=== PATIENT | male | born 1945 | race Caucasian/White ===

== ENCOUNTER 2025-08-14 11:33 | Emergency (ER) | payer MEDICARE, OTHER, SELFPAY ==
[2025-08-14 11:35] VITALS: BP 163/87
--- NOTE | 2025-08-14 12:07 | ED.GENMED ---
History of Present Illness
General
Chief Complaint: Breathing Problem
Source: patient
Exam Limitations: none
Time Seen by Provider: 08/14/25 12:06
Nursing documentation reviewed up to this point in time: agreed with
History of Present Illness
History of Present Illness:
Patient is a 80-year-old male with past medical history of hypertension hyperlipidemia , smoker presents to the ER complaining of cough and shortness of breath. Patient started with symptoms 5 days ago. He did have subjective chills. He does
feel that he is wheezing. He he has no prior asthma or COPD.
He occasionally smokes and last smoked in May.
Past History
Past History
ED Past Medical History: HTN and Other (BPH)
ED Past Surgical History: Bowel resection (Polyps)
Social History
Tobacco: Smoker
Phy Exam
General Physical Exam
General Presentation: no apparent distress
General age: appears stated age
General Skin: warm and dry
General Habitus: normal
General Mental: alert
General Hydration: appears well hydrated
Cardiovascular Exam
Cardiovascular Exam: regular rate/rhythm, no murmur and normal peripheral pulses
Pulmonary Exam
Pulmonary Exam: other (exp wheezing )
Scores
Heart Failure Risk
Heart Failure Risk Score: Not Applicable
Course
Orders/Labs/Results
Orders:
Orders
08/14/25 11:38
Electrocardiogram (*1) Urgent
Reason for Study: Other
Other Reason for Exam: Respiratory Distress
EKG- Treatment ONCE
08/14/25 11:54
Complete Blood Count/With Diff Urgent
Comprehensive Metabolic Panel Urgent
Troponin I Urgent
08/14/25 12:14
Albuterol Sulfate [Ventolin Nebules] 7.5 mg INH R NOW STA
Dexamethasone Sod Phosphate [Decadron] 10 mg IV NOW STA
Ipratropium Nebs [Atrovent Nebules] 1 mg INH R NOW STA
08/14/25 12:15
Chest [CR Chest - 2 Views ] Urgent
Comment:
Reason For Exam: sob
08/14/25 16:09
Albuterol Nebs [Ventolin Nebules] 2.5 mg .ROUTE .STK-MED ONE
08/14/25 16:11
Albuterol Nebs [Ventolin Nebules] 2.5 mg INH R NOW STA
Abnormal Lab Results
08/14/25
11:54
WBC 4.3 L 10^3/uL
(4.8-10.8)
RBC 4.22 L 10^6/uL
(4.70-6.10)
Hct 37.7 L %
(39.0-52.0)
MCH 32.0 H pg
(27.0-31.0)
Plt Count 124 L 10^3/uL
(130-400)
Absolute Lymphs (auto) 0.6 L 10^3/uL
(1.2-3.4)
Lymphocytes % 12.7 L %
(20.5-51.1)
Monocytes % 10.4 H %
(1.7-9.3)
Sodium 132 L mmol/L
(135-145)
Glucose 101 H mg/dl
(70-99)
Total Protein 6.0 L g/dl
(6.3-8.2)
08/14/25 11:54
08/14/25 11:54
Vital Signs
Initial and Last Documented VS:
Initial Vital Signs
Temp Pulse Resp BP Pulse Ox
97.5 F 86 18 163/87 95
08/14/25 11:35 08/14/25 11:35 08/14/25 11:35 08/14/25 11:35 08/14/25 11:35
Last Documented Vital Signs
Temp Pulse Resp BP Pulse Ox
97.5 F 73 17 137/77 93
08/14/25 11:35 08/14/25 16:00 08/14/25 16:00 08/14/25 16:00 08/14/25 16:00
MDM/Problems Addressed
Differential Diagnosis Includes:
Not limited to viral syndrome bronchitis pneumonia
MDM/Problems Addressed:
Patient complains of cough for the past several days and shortness of breath. He is a smoker. Patient presents with obvious wheezing afebrile no fever here in the ER with a normal white count. Patient was given an hour-long neb and steroids
feeling much better significant relief with symptoms. He is ambulatory not hypoxic. X-ray negative for pneumonia. Will give 1 more neb patient feels well after at home. Will DC with prednisone for the next 4 days will also discharge with an
inhaler close outpatient follow-up family doctor. He has no diagnosis of COPD however possible with history of smoking. Symptoms consistent with bronchitis.
*Radiology
Radiology exam reviewed: radiology read reviewed
*Pulse Oximetry
SaO2: 95
Oxygen Mode of Delivery: Room air
Patient hypoxic: not evaluated
*Critical Care Note
Total Time (30-74mins, 75-104mins- exclusive of procedures): Not Applicable
ED Attending Note
-
Portions of this chart may have been created with voice recognition software.� Occasional wrong word or��sound alike� substitutions may have occurred due to the inherent limitations of voice recognition software.
Discharge Plan
Departure
Patient Disposition: Home (Routine Discharge)
Date of Disposition: 08/14/25
Time of Disposition: 16:22
Patient with high blood pressure during this ER visit?: Yes
Condition: Fair
Covid-19: Not Applicable
Discharge Problem:
Bronchitis, Acute bronchitis
Instructions: Acute Bronchitis, Adult (DC), BLOOD PRESSURE
Prescriptions:
New
prednisone 20 mg tablet
40 mg PO DAILY Qty: 8 0RF
albuterol sulfate 90 mcg/actuation HFA aerosol inhaler
2 inh inhalation Q6H PRN (Reason: shortness of breath or wheezing) Qty: 6.7 0RF
Referrals:
Zac Oliveira MD [Family Provider, Family Practice]
Activity Restrictions/Additional Instructions:
As discussed you may use inhaler 2 puffs every 4-6 hours. A prescription for steroids was sent to your pharmacy to take daily for the next 4 days please start tomorrow you were given the first dose here in the ER. Please follow-up closely with
your family doctor in the next 2-3 days. Return if any worsening of symptoms including difficulty breathing or any further concerns.
Interventions
Interventions:
*Risk Screen - Suicide Last Done: 08/14/25 12:26
*General Assessment Last Done: 08/14/25 12:24
*Neglect/Abuse Screening Last Done: 08/14/25 12:26
*ED COVID-19 Vaccine History Last Done: 08/14/25 12:24
*ED Influenza Vaccine History Last Done: 08/14/25 12:24
[facility] Fall Risk Assessment Tool Last Done: 08/14/25 12:24
ED- Cardiac Assessment Last Done: 08/14/25 12:43
ED- Pulmonary Assessment Last Done: 08/14/25 15:00
Discharge Date and Time
Print Language: GERMAN
--- NOTE | 2025-08-14 12:07 | EDRN ---
Yuri Kellogg SMOKING PIPE COATER in room w/pt at this time.
[2025-08-14 12:24] VITALS: BMI 31.5
[2025-08-14 12:28] VITALS: BP 141/73
[2025-08-14] MEDS: VENTOLIN NEBULES 7.5 MG INH (12:30)
[2025-08-14] MEDS: ATROVENT NEBULES 1 MG INH (12:30)
[2025-08-14 12:32] LABS: Hematocrit 37.7 % (39.0-52.0); Hemoglobin 13.5 g/dL (13.0-18.0); Mean Corp Hgb Conc. 35.8 g/dL (33.0-37.0); Mean Corpuscular Volume 89.3 fL (80.0-94.0); Nucleated Red Blood Cells % 0 % (-); Platelet Count 124 10^3/uL (130-400); Red Cell Dist. Width 12.2 % (11.5-14.5)
[2025-08-14 12:33] LABS: ALT (SGPT) 28 U/L (0-50); AST (SGOT) 21 U/L (17-59); Albumin 3.7 g/dl (3.5-5.0); Alkaline Phosphatase 56 U/L (38-126); Blood Urea Nitrogen 13 mg/dl (9-20); Calcium 8.5 mg/dl (8.4-10.2); Carbon Dioxide 23 mmol/L (22-30); Chloride 102 mmol/L (98-107); Estimated Creatinine Clearance 100 ml/min; Glucose 101 mg/dl (70-99); Potassium 3.6 mmol/L (3.5-5.1); Sodium 132 mmol/L (135-145); Total Protein 6.0 g/dl (6.3-8.2); eGFR > 60.00
[2025-08-14] MEDS: DECADRON 10 MG IV (12:39)
[2025-08-14 12:42] LABS: Troponin I < 0.012 ng/ml
[2025-08-14 13:00] VITALS: BP 113/87
--- NOTE | 2025-08-14 13:53 | EDRN ---
Pt is awaiting to go to xray at this time though 1 hr neb still going. [employer] notified can go in 15 minutes.
[2025-08-14 14:00] VITALS: BP 126/73
[2025-08-14 15:00] VITALS: BP 142/69
--- NOTE | 2025-08-14 15:04 | EDRN ---
Finished duoneb at 14:25, then to [facility].
[2025-08-14 16:00] VITALS: BP 137/77
[2025-08-14] MEDS: VENTOLIN NEBULES 2.5 MG INH (16:11)
--- NOTE | 2025-08-14 16:13 | EDRN ---
Pt ambulated in [facility] per request of Yuri Kellogg NP at this time. Pt tolerated ambulating very well and POX 93-94% on RA throughout walk. Lis Pike NP said to give pt an Albuteral neb and he will be discharged.
== END 2025-08-14 17:00 | disposition home or self-care (01) ==
LOC: EMR 11:33
PROVIDERS: Emergency Medicine; EMERGENCY PHYSICIAN Emergency Medicine; FAMILY PHYSICIAN Family Medicine
DX: J20.9 Acute bronchitis, unspecified (principal); I10 Essential (primary) hypertension; E78.00 Pure hypercholesterolemia, unspecified; F17.200 Nicotine dependence, unspecified, uncomplicated; N40.0 Benign prostatic hyperplasia without lower urinary tract symptoms
CPT/HCPCS: 99283; 94640; 96374; 71046; 80053; 84484; 85025; 93005